=== PATIENT | female | born 1990 | race Caucasian/White ===

== ENCOUNTER 2016-09-02 06:31 | Emergency (ER) | payer OTHER ==
[2016-09-02 06:39] VITALS: BP 126/92
--- NOTE | 2016-09-02 07:05 | ER Document Report ---
ED Oral Problem - General Mode of Arrival: Ambulatory Information source: Patient TRAVEL OUTSIDE OF THE [place] IN LAST 30 DAYS: No - HPI Patient complains to provider of: Toothache - left lower 2nd pre-molar Onset: Other - 2 nights ago Associated symptoms: Other - see notes above - General Chief Complaint: Toothache Stated Complaint: TOOTHACHE Notes: 25 year old female presents to the ED complaining of left lower 2nd pre-molar tooth pain that woke the patient up from sleep 2 nights ago. Patient reports that she took ibuprofen at 0300 and states that Anbesol did not help with the pain. Patient explains that the tooth and the one adjacent to it were both filled. Patient had the adjacent tooth removed, and reports that she did not notice that the filling in her 2nd pre-molar tooth was decaying. Patient is currently on Xarelto. (LOLY SCHRADER) - Related Data Allergies/Adverse Reactions: acetaminophen [From Percocet] Adverse Reaction (Verified 07/28/15 17:07) oxycodone HCl [From Percocet] Adverse Reaction (Verified 07/28/15 17:07) Past Medical History - General Information source: Patient - Social History Smoking Status: Unknown if Ever Smoked Family History: Reviewed & Not Pertinent Patient has suicidal ideation: No Patient has homicidal ideation: No Renal/ Medical History: Denies: Hx Peritoneal Dialysis - Immunizations Hx Diphtheria, Pertussis, Tetanus Vaccination: No Review of Systems - Review of Systems Constitutional: No symptoms reported EENT: See HPI, Dental problem - left lower tooth pain Cardiovascular: No symptoms reported Respiratory: No symptoms reported Gastrointestinal: No symptoms reported Genitourinary: No symptoms reported Female Genitourinary: No symptoms reported Musculoskeletal: No symptoms reported Skin: No symptoms reported Hematologic/Lymphatic: No symptoms reported Neurological/Psychological: No symptoms reported -: Yes All other systems reviewed and negative Physical Exam - General General appearance: Alert In distress: None - HEENT Head: Normocephalic, Atraumatic Eyes: Normal Extraocular movements intact: Yes Pupils: PERRL Mouth/Lips: Other - Left lower 2nd per-molar filling with a vertical crack that is tender to palpate. No evidence of gum swelling or abscess. Posterior aspect of the tooth is chipped. 3 molars to the left lower side have been extracted.. No: Normal - Respiratory Respiratory status: No respiratory distress - Cardiovascular Rhythm: Regular - Abdominal Inspection: Normal - Back Back: Normal - Extremities General upper extremity: Normal inspection, Normal ROM General lower extremity: Normal inspection, Normal ROM - Neurological Neuro grossly intact: Yes - Psychological Associated symptoms: Normal affect, Normal mood - Skin Skin Temperature: Warm Skin Moisture: Dry Skin Color: Normal - Vital signs Vitals: Temp Pulse Resp BP Pulse Ox 97.6 F 70 16 126/92 H 100 09/02/16 06:37 09/02/16 06:37 09/02/16 06:37 09/02/16 06:37 09/02/16 06:37 Discharge - Discharge Clinical Impression: Dental decay Additional Instructions: Toothache: Your pain is due to dental decay. The tooth must be repaired in order for you to feel better. You will, therefore, be referred to a dentist. Severe swelling or drainage around a tooth usually means a deep dental abscess. This also requires evaluation and treatment by the dentist, but antibiotics may be prescribed while awaiting dental treatment. You should be rechecked immediately if you develop major swelling of the face, increasing pain, a lump in the jaw or gums, headache, or fever. Prescriptions: Cephalexin Monohydrate [Keflex 500 mg Capsule] 500 mg PO QID #28 capsule Hydrocodone/Acetaminophen [Hydrocodon-Acetaminophen 5-325] 1 each PO Q4 PRN #15 tablet PRN Reason: Referrals: BELLA RAMÍREZ DO [NO LOCAL MD] - Follow up as needed Scribe Attestation: 09/02/16 07:07 I personally performed the services described in the documentation, reviewed and edited the documentation which was dictated to the scribe in my presence, and it accurately records my words and actions. (DELPHINE JAQUEZ) Scribe Documentation - Scribe Written by Brandoibe:: Humera Vasquez, 09/02/2016 0714 acting as scribe for :: Margie
[2016-09-02] MEDS ORDERED: HYDROCODONE/ACETAMINOPHEN 5-325 MG 6 TAB/DSPK PO PRN (07:09)
[2016-09-02] MEDS ORDERED: CEPHALEXIN 500 MG CAPSULE PO ONE (07:09)
== END 2016-09-02 07:18 | disposition home or self-care (01) ==
LOC: ER 06:31
DX: K02.9 Dental caries, unspecified (principal); Z88.6 Allergy status to analgesic agent
CPT/HCPCS: 99282